=== PATIENT | male | born 1970 | race Caucasian/White ===

== ENCOUNTER 2023-12-27 22:16 | Emergency (ER) | payer MEDICARE, SELFPAY ==
[2023-12-27 22:22] VITALS: BP 167/91
[2023-12-28 00:34] VITALS: BMI 41.6
[2023-12-28 00:51] LABS: Urine Albumin Negative (Neg - Trace); Urine Bilirubin Negative (Negative); Urine Character Clear (Clear); Urine Color Yellow; Urine Glucose Negative (Negative); Urine Ketone Negative (Negative); Urine Leukocyte Negative (Negative); Urine Nitrite Negative (Negative); Urine Occult Blood Trace (Negative); Urine Urobilinogen Negative (Neg - 1+)
[2023-12-28 00:59] LABS: Urine Squamous Cell 0-2 /LPF (Few)
[2023-12-28 01:00] LABS: Urine Bacteria Many (Negative); Urine White Cell 0-2 /HPF (0-5)
[2023-12-28 01:03] LABS: Blood Urea Nitrogen 17 mg/dl (9-20); Calcium 9.6 mg/dl (8.4-10.2); Carbon Dioxide 27 mmol/L (22-30); Chloride 103 mmol/L (98-107); Estimated Creatinine Clearance > 125 ml/min; Glucose 138 mg/dl (70-99); Potassium 4.4 mmol/L (3.5-5.1); Sodium 143 mmol/L (135-145); eGFR > 60.00
--- NOTE | 2023-12-28 01:07 | ED.GENMED ---
History of Present Illness
General
Chief Complaint: Male Genito-Urinary Symptoms
Time Seen by Provider: 12/27/23 23:30
History of Present Illness
History of Present Illness:
53-year-old male presents to the emergency department with a chief complaint of 'my penis is falling off it is broken'. When asked to clarify this further, the patient states 'I smoked too much and I have ruined my entire body, things are falling
off my penis and it just does not work'. When I asked the patient if he is having painful urination he states 'I pee fine when I drink distilled water but if I drink soda or milk I cannot pee'. Patient also endorses erectile dysfunction. Lastly
he states to me that he stopped his Depakote because when he took his Depakote 'a large band would appear and keep me tied to my house but the band suddenly broke and my doctor told me to stop taking the medicine'.
Past History
Past History
ED Past Medical History: HTN and Other (Bipolar)
ED Past Surgical History: None
Social History
Tobacco: Smoker
Alcohol: Occasional
Drug: Marijuana
Personal:
Living: with family
Employment: Not employed
Family History
Family History: Other (Bipolar)
Review of Systems
Review of Systems
Allergies reviewed?: Yes
All Other Systems: ROS reviewed and negative except as documented in HPI and ROS
Phy Exam
Physical Exam
Physical Exam:
GEN: Well appearing, NAD, WDWN
HEENT: Oral mucosa moist, no scleral icterus
Cardiac: Regular rate
Lung: No respiratory distress, no tachypnea
: Penis is circumcised, no erythema or swelling, no testicular tenderness. No abnormal lesions, no penile discharge, grossly unremarkable penis
MSK: No gross deformity or injuries
Skin: Good color, no pallor or jaundice, no rashes
Neuro: AO x3, moves all extremities freely
Psych: Calm, cooperative
Course
Orders/Labs/Results
Orders:
Orders
12/28/23 00:39
Basic Metabolic Panel Urgent
Urinalysis Reflex To Culture Urgent
Date Specimen was Collected: 12/28/23
Time Specimen was Collected: 00:35
Urine Microscopic Reflex Cult Urgent
Urine Culture Urgent
LUCIEN Source: U
Specimen Description:
Date Specimen was Collected: 12/28/23
Time Specimen was Collected: 00:35
12/28/23 01:16
Cephalexin Monohydrate [Keflex] 500 mg PO NOW STA
Abnormal Lab Results
12/28/23
00:39
Glucose 138 H mg/dl
(70-99)
Ur Occult Blood Reflex Trace A
(Negative)
Urine RBC 3-6 A /HPF
(0-2)
Urine Bacteria (Reflex) Many A
(Negative)
12/28/23 00:39
Vital Signs
Initial and Last Documented VS:
Initial Vital Signs
Temp Pulse Resp BP Pulse Ox
98.9 F 80 18 167/91 96
12/27/23 22:22 12/27/23 22:22 12/27/23 22:22 12/27/23 22:22 12/27/23 22:22
Last Documented Vital Signs
Temp Pulse Resp BP Pulse Ox
98.9 F 80 18 167/91 100
12/27/23 22:22 12/27/23 22:22 12/27/23 22:22 12/27/23 22:22 12/28/23 01:27
MDM/Problems Addressed
MDM/Problems Addressed:
Patient appears to be quite delusional in regards to his concerns about his 'nonworking penis'. Certainly he has some degree of erectile dysfunction based on his obesity, diabetes, and rampant tobacco use however I cannot exactly quantify what he
is referring to when he states 'it does not work'. I reassured him that his urinalysis suggest a UTI and he does endorse frequency and urgency thus he was treated with antibiotics. When I discussed antibiotic administration patient states 'can I
get a bunch of refills of that'. I educated him that antibiotics will be for a 1 week course and no further. He should follow-up with his primary prescriber
*Critical Care Note
Total Time (30-74mins, 75-104mins- exclusive of procedures): Not Applicable
ED Attending Note
-
Portions of this chart may have been created with voice recognition software.� Occasional wrong word or��sound alike� substitutions may have occurred due to the inherent limitations of voice recognition software.
Discharge Plan
Departure
Patient Disposition: Home (Routine Discharge)
Date of Disposition: 12/28/23
Time of Disposition: 01:07
Patient with high blood pressure during this ER visit?: Yes
Discharge Problem:
Urinary tract infection
Instructions: Urinary Tract Infection, Adult ED
Prescriptions:
New
cephalexin 500 mg capsule
500 mg PO BID 7 Days Qty: 14 0RF
No Action
Depakote
1,000 mg PO DAILY
hydrocodone-acetaminophen 5 MG/500 MG tablet
1 tab PO .Q4-6HPRN PRN (Reason: PAIN) Qty: 20 0RF
chlorpromazine 100 MG tablet
100 mg PO QS
buspirone [BuSpar] 15 MG tablet
15 mg PO BID
aripiprazole [Abilify] 30 MG tablet
30 mg PO DAILY
penicillin V potassium 500 MG tablet
500 mg PO Q6 10 Days 0RF
diclofenac sodium 75 MG tablet,delayed release (DR/EC)
75 mg PO BID Qty: 10 0RF
hydrocodone-acetaminophen [Vicodin] 1 EACH tablet
1 ea PO Q4HPRN PRN (Reason: pain) Qty: 10 0RF
Referrals:
Arabella Roland DO [Family Provider] -
Interventions
Interventions:
*Risk Screen - Suicide Last Done: 10/01/24 22:22
*General Assessment Last Done: 12/27/23 22:22
*Neglect/Abuse Screening Last Done: 12/27/23 22:22
ED- Fall Risk Assessment Last Done: 12/28/23 01:27
*ED COVID-19 Vaccine History Last Done: 12/28/23 01:27
*Nursing Disposition Last Done: 12/28/23 01:27
ED-Male Genitourinary Assessment Last Done: 12/28/23 00:40
Discharge Date and Time
Discharge Date/Time: 12/28/23 01:30
Print Language: [place]
[2023-12-28] MEDS: KEFLEX 500 MG PO (01:25)
== END 2023-12-28 01:30 | disposition home or self-care (01) ==
LOC: EMR 22:16
PROVIDERS: Physician Assistant; EMERGENCY PHYSICIAN Student in an Organized Health Care Education/Training Program; FAMILY PHYSICIAN Family Medicine
DX: N39.0 Urinary tract infection, site not specified (principal); I10 Essential (primary) hypertension; R31.9 Hematuria, unspecified; N52.9 Male erectile dysfunction, unspecified; F31.9 Bipolar disorder, unspecified; E11.69 Type 2 diabetes mellitus with other specified complication; F17.200 Nicotine dependence, unspecified, uncomplicated
CPT/HCPCS: 99283; 80048; 81003; 81015; 87086

== ENCOUNTER 2024-02-29 05:10 | Emergency (ER) | payer MEDICARE, SELFPAY ==
[2024-02-29 05:11] VITALS: BP 148/90
[2024-02-29 06:39] VITALS: BMI 44.3
[2024-02-29 06:42] VITALS: BP 159/100
--- NOTE | 2024-02-29 06:45 | ED.GENMED ---
History of Present Illness
General
Chief Complaint: Male Genito-Urinary Symptoms
Time Seen by Provider: 02/29/24 06:04
History of Present Illness
History of Present Illness:
Patient is a 53-year-old man with history of, bipolar disorder presenting to the emergency department with urinary problems. Initially patient states that his penis is not working and it is broken. Upon clarification he states that he has been
having difficulty with erections. He also states that he has been having difficulty with urinating. He states that he switched to a different brand of cigarettes and water and since then has been having trouble urinating. He does state that he is
able to fully empty his bladder however has been having increased urinary frequency. He is unaware of any problems with his prostate. Has never seen a urologist. Denies any back pain numbness tingling saddle anesthesia or IV drug use. He does
state that he does not drink much water as he was having issues with it prior. Denies any alcohol use. He does state that he has been on risperidone and has not missed any doses
Past History
Past History
ED Past Medical History: HTN and Other (Bipolar)
ED Past Surgical History: None
Social History
Tobacco: Smoker
Alcohol: Occasional
Drug: Marijuana
Personal:
Living: with family
Employment: Not employed
Family History
Family History: Other (Bipolar)
Phy Exam
Physical Exam
Physical Exam:
GENERAL: in no acute distress
HEENT: normocephalic, extraocular movements intact, moist oral mucosa
NECK: normal inspection
RESPIRATORY: no respiratory distress, clear to auscultation bilaterally
CARDIOVASCULAR: regular rate and rhythm
ABDOMEN/: soft, non-distended, non-tender to palpation, no rebound or guarding
EXTREMITIES: non-tender, no edema/swelling
NEUROLOGIC: awake and alert, moves all extremities
SKIN: warm
Course
Orders/Labs/Results
Orders:
Orders
02/29/24 06:33
Bladder Scan- Treatment ONCE
02/29/24 06:46
Urinalysis Reflex To Culture Urgent
Date Specimen was Collected: 02/29/24
Time Specimen was Collected: 06:45
Urine Microscopic Reflex Cult Urgent
Abnormal Lab Results
02/29/24
06:46
Urine Ketones Trace A
(Negative)
Ur Occult Blood Reflex Trace A
(Negative)
Urine Bilirubin 1+ A
(Negative)
Urine Urobilinogen 3+ A
(Neg - 1+)
Urine RBC 3-6 A /HPF
(0-2)
Vital Signs
Initial and Last Documented VS:
Initial Vital Signs
Temp Pulse Resp BP Pulse Ox
97.4 F 80 22 148/90 97
02/29/24 05:11 02/29/24 05:11 02/29/24 05:11 02/29/24 05:11 02/29/24 05:11
Last Documented Vital Signs
Temp Pulse Resp BP Pulse Ox
97.4 F 88 20 159/100 94
02/29/24 05:11 02/29/24 06:42 02/29/24 06:42 02/29/24 06:42 02/29/24 06:42
MDM/Problems Addressed
Differential Diagnosis Includes:
Patient is a 53-year-old man presenting to the emergency department with urinary problems. Vitals unremarkable and exam is reassuring. Differential consists of urinary tract infection versus urinary retention either from medication/drugs or
prostate. History and exam not consistent with cauda equina. Will check urinalysis as well as bladder scan for retention.
*Critical Care Note
Total Time (30-74mins, 75-104mins- exclusive of procedures): Not Applicable
Update Note
Update Note:
Patient did give us a urine sample. After he urinated bladder scan showed 1 mL.
Urine without signs of infection. Will give urology and PCP follow-up
ED Attending Note
-
Portions of this chart may have been created with voice recognition software.� Occasional wrong word or��sound alike� substitutions may have occurred due to the inherent limitations of voice recognition software.
Discharge Plan
Departure
Patient Disposition: Home (Routine Discharge)
Date of Disposition: 02/29/24
Time of Disposition: 07:41
Patient with high blood pressure during this ER visit?: No
Discharge Problem:
Urinary problem
Prescriptions:
No Action
Depakote
1,000 mg PO DAILY
hydrocodone-acetaminophen 5 MG/500 MG tablet
1 tab PO .Q4-6HPRN PRN (Reason: PAIN) Qty: 20 0RF
chlorpromazine 100 MG tablet
100 mg PO QS
buspirone [BuSpar] 15 MG tablet
15 mg PO BID
aripiprazole [Abilify] 30 MG tablet
30 mg PO DAILY
penicillin V potassium 500 MG tablet
500 mg PO Q6 10 Days 0RF
diclofenac sodium 75 MG tablet,delayed release (DR/EC)
75 mg PO BID Qty: 10 0RF
hydrocodone-acetaminophen [Vicodin] 1 EACH tablet
1 ea PO Q4HPRN PRN (Reason: pain) Qty: 10 0RF
cephalexin 500 mg capsule
500 mg PO BID 7 Days Qty: 14 0RF
Referrals:
Arabella Roland DO [Family Provider] -
Jeffry Leon Jr., MD [Active] -
Activity Restrictions/Additional Instructions:
You were seen in the Emergency Department today for urinary problems. While you were here we performed a urine test, which did not show any signs of infection
We would like for you to follow up with your primary care physician for further evaluation. If you experience fever, worsening of your symptoms, or develop any other new or concerning symptoms, please return to the Emergency Department immediately.
Please see the attached sheet for additional information.
Interventions
Interventions:
*General Assessment Last Done: 02/29/24 06:40
*Neglect/Abuse Screening Last Done: 02/29/24 06:40
ED- Fall Risk Assessment Last Done: 02/29/24 05:37
*ED COVID-19 Vaccine History Last Done: 02/29/24 06:40
ED-Male Genitourinary Assessment Last Done: 02/29/24 06:43
Discharge Date and Time
Print Language: [id number]
[2024-02-29 07:12] LABS: Urine Albumin Trace (Neg - Trace); Urine Bilirubin 1+ (Negative); Urine Character Clear (Clear); Urine Color Yellow; Urine Glucose Negative (Negative); Urine Ketone Trace (Negative); Urine Leukocyte Negative (Negative); Urine Nitrite Negative (Negative); Urine Occult Blood Trace (Negative); Urine Specific Gravity 1.025 (<1.030); Urine Urobilinogen 3+ (Neg - 1+)
[2024-02-29 07:37] LABS: Urine Mucus Many
[2024-02-29 07:38] LABS: Urine Amorphous Seen; Urine Squamous Cell 0-2 /LPF (Few); Urine White Cell 0-2 /HPF (0-5)
[2024-02-29 07:39] LABS: Urine Calcium Oxalate Crystals Present
== END 2024-02-29 07:59 | disposition home or self-care (01) ==
LOC: EMR 05:10
PROVIDERS: EMERGENCY PHYSICIAN Student in an Organized Health Care Education/Training Program; FAMILY PHYSICIAN Family Medicine
DX: R35.0 Frequency of micturition (principal); R39.198 Other difficulties with micturition; F31.9 Bipolar disorder, unspecified; F17.210 Nicotine dependence, cigarettes, uncomplicated
CPT/HCPCS: 99283; 51798; 81003; 81015